=== PATIENT | female | born 1965 | race African-American/Black ===

== ENCOUNTER 2018-07-15 13:54 | Emergency (ER) | payer MEDICAID, OTHER ==
[~2018-07-15] VITALS: Ht 170.2 cm; Wt 128.0 kg
[~2018-07-15 13:54] MED LIST: METO1TAB39 MT
[2018-07-15] MEDS ORDERED: SODIUM CHLORIDE 0.9% 1,000 ML IV ONE (14:36)
[2018-07-15] MEDS ORDERED: ATENOLOL 25MG TABLET PO ONE (14:45)
[2018-07-15 14:54] LABS: BASOPHILS % 0.4 % (0.0-2.0); EOSINOPHILS % 0.9 % (0.0-5.0); HEMATOCRIT. 41.2 % (36.0-48.0); HEMOGLOBIN. 13.6 g/dL (12.0-16.0); LYMPHOCYTES % 49.7 % (20.0-50.0); MEAN CORPUSCULAR HEMOGLOBIN 27.4 pg (28.0-32.0); MEAN CORPUSCULAR VOLUME 83.2 fL (81.0-99.0); MEAN PLATELET VOLUME 9.5 fl (7.4-10.4); MONOCYTES % 8.4 % (2.0-8.0); NEUTROPHILS % 40.6 % (40.0-76.0); PLATELET 172 x1000/uL (130-400); RED BLOOD CELL COUNT 4.96 mill/uL (4.2-5.4); RED CELL DISTRIBUTION WIDTH 14.8 % (11.6-14.6)
[2018-07-15 14:58] LABS: CHLORIDE 105 mEq/L (98-107)
[2018-07-15 17:18] VITALS: BP 158/76
== END 2018-07-15 17:20 | disposition home or self-care (01) ==
LOC: ER 13:54
DX: I16.0 Hypertensive urgency (principal); I10 Essential (primary) hypertension; R51 Headache; Z88.1 Allergy status to other antibiotic agents; Z88.8 Allergy status to other drugs, medicaments and biological substances
CPT/HCPCS: 36415; 70450; 80053; 85025; 93005; 99284; J7030

== ENCOUNTER 2018-09-07 15:02 | Emergency (ER) | payer OTHER ==
[~2018-09-07] VITALS: Ht 170.2 cm; Wt 128.0 kg
[2018-09-07 15:05] VITALS: BP 120/80
== END 2018-09-07 20:00 | disposition home or self-care (01) ==
LOC: ER 19:39
DX: R00.2 Palpitations (principal); I10 Essential (primary) hypertension; Z98.890 Other specified postprocedural states; Z88.1 Allergy status to other antibiotic agents; Z88.8 Allergy status to other drugs, medicaments and biological substances
CPT/HCPCS: 36415; 84484; 93005; 99284

== ENCOUNTER 2022-07-06 11:26 | Inpatient (IN) | payer OTHER ==
[~2022-07-06] VITALS: Ht 170.2 cm; Wt 154.2 kg
[~2022-07-06 11:26] MED LIST changes: +AMLO5TAB88 PO; +ASPI-1406 MT; +ATEN-42 PO; +ATOR40TA70 MT; +LORA-249 MT; +LOSA50TA3 PO; -METO1TAB39 MT
[2022-07-06] MEDS ORDERED: IOHEXOL-350 100 ML BOTTLE ONE (11:58)
[2022-07-06 12:25] LABS: BASOPHILS % 0.2 % (0.0-2.0); HEMATOCRIT. 39.6 % (36.0-48.0); HEMOGLOBIN. 13.1 g/dL (12.0-16.0); LYMPHOCYTES % 56.7 % (20.0-50.0); MEAN CORPUSCULAR HEMOGLOBIN 27.7 pg (28.0-32.0); MEAN PLATELET VOLUME 9.4 fl (7.4-10.4); MONOCYTES % 12.6 % (2.0-8.0); NEUTROPHILS % 29.5 % (40.0-76.0); PLATELET 163 x1000/uL (130-400); RED BLOOD CELL COUNT 4.72 mill/uL (4.2-5.4); RED CELL DISTRIBUTION WIDTH 14.6 % (11.6-14.6)
[2022-07-06 12:30] LABS: CHLORIDE 104 mEq/L (98-107)
[2022-07-06] MEDS ORDERED: METOCLOPRAMIDE HCL 10MG/2ML VIAL IV ONE (12:30)
[2022-07-06] MEDS ORDERED: KETOROLAC 30MG/ML VIAL IV ONE (12:30)
[2022-07-06 12:39] LABS: ETHANOL BLOOD < 10 mg/dL
[2022-07-06 13:00] LABS: CLARITY URINE CLEAR (CLEAR); COLOR URINE YELLOW (YELLOW); KETONES URINE NEGATIVE (NEGATIVE); LEUKOCYTE ESTERASE URINE NEGATIVE (NEGATIVE); NITRITE URINE NEGATIVE (NEGATIVE); OCCULT BLOOD URINE NEGATIVE (NEGATIVE); PROTEIN URINE NEGATIVE (NEGATIVE); UROBILINOGEN URINE 0.2 E.U./dL (0.2-1.0)
[2022-07-06 13:37] LABS: *AMPHETAMINES SCREEN URINE NEGATIVE (NEGATIVE); *BARBITURATES SCREEN URINE NEGATIVE (NEGATIVE); *BENZODIAZEPINES SCREEN URINE NEGATIVE (NEGATIVE); *COCAINE SCREEN URINE NEGATIVE (NEGATIVE); CANNABINOID URINE SCREEN NEGATIVE (NEGATIVE); METHADONE URINE SCREEN NEGATIVE (NEGATIVE); OPIATES URINE SCREEN NEGATIVE (NEGATIVE); PHENCYCLIDINE URINE SCREEN NEGATIVE (NEGATIVE)
[2022-07-06] MEDS ORDERED: LORAZEPAM 2MG/ML CPJ IV NR (22:00)
[2022-07-06] MEDS ORDERED: VALPROATE SODIUM 1,000 MG in SODIUM CHLORIDE 0.9% 100 ML IV NR (23:00)
[2022-07-06] MEDS ORDERED: METHYLPREDNISOLONE SOD SUCC 1,000 MG in DEXT 5% WATER 100 ML IV SCH (23:00)
[2022-07-07 09:30] VITALS: BP 177/92
[2022-07-07] MEDS ORDERED: CLONIDINE 0.1MG TABLET PO PRN (11:45)
[2022-07-07 12:00] VITALS: BP 133/63
[2022-07-07] MEDS: ATENOLOL 25MG TABLET PO SCH ×2 (12:30→17:00)
[2022-07-07] MEDS: LOSARTAN POTASSIUM 50 MG TABLET PO SCH (12:30)
[2022-07-07] MEDS: AMLODIPINE 5MG TABLET PO SCH ×2 (12:30→17:21)
[2022-07-07] MEDS: ASPIRIN 81MG EC TABLET PO SCH (13:35)
[2022-07-07 16:00] VITALS: BP 141/67
[2022-07-07] MEDS ORDERED: ATEN-42 MT (17:11)
[2022-07-07] MEDS ORDERED: NALOXONE HCL 0.4MG/ML VIAL IV PRN (17:15)
[2022-07-07] MEDS ORDERED: HYDROCODONE/ACETAMINOPHEN 5/325MG TABLET PO PRN (17:15)
[2022-07-07] MEDS: POLYETHYLENE GLYCOL 3350 (17GM) 1 DOSE PACK PO SCH (17:27)
[2022-07-07 20:00] VITALS: BP 147/79
[2022-07-07] MEDS: METHYLPREDNISOLONE SOD SUCC 1,000 MG in DEXT 5% WATER 100 ML IV SCH (21:35)
[2022-07-07] MEDS ORDERED: LORAZEPAM 2MG/ML CPJ IV PRN (23:15)
[2022-07-08] VITALS: BP 144/70
[2022-07-08 04:00] VITALS: BP 145/79
[2022-07-08 08:00] VITALS: BP 177/89
[2022-07-08] MEDS: ASPIRIN 81MG EC TABLET PO SCH (08:10)
[2022-07-08] MEDS: AMLODIPINE 5MG TABLET PO SCH ×2 (08:10→17:00)
[2022-07-08] MEDS: POLYETHYLENE GLYCOL 3350 (17GM) 1 DOSE PACK PO SCH ×3 (08:10→18:11)
[2022-07-08] MEDS: ATORVASTATIN CALCIUM 40MG TABLET PO SCH (08:10)
[2022-07-08] MEDS: LOSARTAN POTASSIUM 50 MG TABLET PO SCH (08:10)
[2022-07-08] MEDS: ATENOLOL 25MG TABLET PO SCH (08:13)
[2022-07-08 09:00] LABS: BASOPHILS % 0.2 % (0.0-2.0); HEMATOCRIT. 39.3 % (36.0-48.0); LYMPHOCYTES % 15.3 % (20.0-50.0); MEAN CORPUSCULAR HEMOGLOBIN 27.5 pg (28.0-32.0); MEAN CORPUSCULAR VOLUME 83.3 fL (81.0-99.0); MONOCYTES % 2.9 % (2.0-8.0); NEUTROPHILS % 81.6 % (40.0-76.0); PLATELET 168 x1000/uL (130-400); RED BLOOD CELL COUNT 4.72 mill/uL (4.2-5.4); RED CELL DISTRIBUTION WIDTH 14.7 % (11.6-14.6)
[2022-07-08 09:31] LABS: CHLORIDE 101 mEq/L (98-107)
[2022-07-08 09:47] LABS: T4 FREE 1.18 ng/dL (0.76-1.46)
[2022-07-08 12:00] VITALS: BP 144/61
[2022-07-08] MEDS ORDERED: AMLO5TAB88 PO (15:38)
[2022-07-08] MEDS ORDERED: LIP40 PO (15:38)
[2022-07-08] MEDS ORDERED: ATEN-42 PO (15:38)
[2022-07-08] MEDS ORDERED: LOSA50TA3 PO (15:38)
[2022-07-08] MEDS ORDERED: METH-371 PO (15:38)
[2022-07-08] MEDS ORDERED: ASPI-1406 PO (15:38)
[2022-07-08] MEDS ORDERED: LORA-249 MT ×2 (15:39→17:22)
[2022-07-08 16:00] VITALS: BP 156/79
[2022-07-08] MEDS ORDERED: LOSA50TA41 MT (17:22)
[2022-07-08] MEDS ORDERED: ASPI-1497 MT (17:22)
[2022-07-08] MEDS ORDERED: AMLO5TAB4 PO (17:22)
[2022-07-08] MEDS ORDERED: LIP40 MT (17:22)
[2022-07-08] MEDS ORDERED: ATEN-42 MT (17:22)
[2022-07-08] MEDS: METHIMAZOLE 5MG TABLET PO SCH ×2 (18:03→18:11)
[2022-07-08 20:00] VITALS: BP 137/62
[2022-07-08] MEDS: METHYLPREDNISOLONE SOD SUCC 1,000 MG in DEXT 5% WATER 100 ML IV SCH (20:52)
[2022-07-09] VITALS: BP 164/88
[2022-07-09 04:00] VITALS: BP 134/88
[2022-07-09 08:00] VITALS: BP 155/81
[2022-07-09] MEDS: ATENOLOL 25MG TABLET PO SCH (09:07)
[2022-07-09] MEDS: ATORVASTATIN CALCIUM 40MG TABLET PO SCH (09:08)
[2022-07-09] MEDS: AMLODIPINE 5MG TABLET PO SCH (09:08)
[2022-07-09] MEDS: LOSARTAN POTASSIUM 50 MG TABLET PO SCH (09:10)
[2022-07-09] MEDS: METHIMAZOLE 5MG TABLET PO SCH (09:10)
[2022-07-09] MEDS: ASPIRIN 81MG EC TABLET PO SCH (09:10)
[2022-07-09] MEDS: POLYETHYLENE GLYCOL 3350 (17GM) 1 DOSE PACK PO SCH (09:10)
[2022-07-09 12:04] VITALS: BP 148/82
== END 2022-07-09 12:30 | disposition home or self-care (01) | DRG 45 ==
LOC: ER 11:47 → EDBEDREQTM 11:54 → EDBEDREQSVC 11:54 → EDBEDREQ 11:54 → MICUSO 13:21 → EDBEDREQTM 13:26 → EDBEDREQ 13:26 → 7EST 07-07 08:55
PROVIDERS: ADMIT Internal Medicine; ATTEND Internal Medicine
DX: I63.9 Cerebral infarction, unspecified (principal); I67.4 Hypertensive encephalopathy; Z68.43 Body mass index [BMI] 50.0-59.9, adult; E66.01 Morbid (severe) obesity due to excess calories; I10 Essential (primary) hypertension; E78.5 Hyperlipidemia, unspecified; Z88.8 Allergy status to other drugs, medicaments and biological substances; Z79.82 Long term (current) use of aspirin; Z79.899 Other long term (current) drug therapy; Z82.49 Family history of ischemic heart disease and other diseases of the circulatory system
CPT/HCPCS: 36415; 70496; 70498; 70551; 71045; 80048; 80053; 80305; 80320; 81003; 82962; 84439; 84443; 84481; 85025; 93005; 93306; 99291; J1885; J2060; J2765; J2930; J3490; J7050; J7060; Q9967; G0480

== ENCOUNTER 2023-04-28 20:46 | Emergency (ER) | payer MEDICAID, OTHER ==
[~2023-04-28] VITALS: Ht 172.7 cm; Wt 127.0 kg
[~2023-04-28 20:46] MED LIST changes: +AMLO5TAB4 PO; -ASPI-1406 MT; +ASPI-1406 PO; +ASPI-1497 MT; +ATEN-42 MT; -ATOR40TA70 MT; +LIP40 MT; +LIP40 PO; +LOSA-413 PO; -LOSA50TA3 PO; +LOSA50TA41 MT; +METH-371 PO
[2023-04-28 20:56] VITALS: O2SAT 99
[2023-04-28 21:39] LABS: BASOPHILS % 0.4 % (0.0-2.0); EOSINOPHILS % 1.3 % (0.0-5.0); HEMATOCRIT. 38.4 % (36.0-48.0); HEMOGLOBIN. 12.3 g/dL (12.0-16.0); LYMPHOCYTES % 52.3 % (20.0-50.0); MEAN CORPUSCULAR HEMOGLOBIN 26.8 pg (28.0-32.0); MEAN CORPUSCULAR HGB CONC 32.2 g/dL (31.0-37.0); MEAN CORPUSCULAR VOLUME 83.2 fL (81.0-99.0); MEAN PLATELET VOLUME 9.9 fl (7.4-10.4); MONOCYTES % 11.4 % (2.0-8.0); NEUTROPHILS % 34.6 % (40.0-76.0); PLATELET 173 x1000/uL (130-400); RED BLOOD CELL COUNT 4.61 mill/uL (4.2-5.4); RED CELL DISTRIBUTION WIDTH 14.7 % (11.6-14.6); WHITE BLOOD COUNT 5.4 x1000/uL (4.5-11.0)
[2023-04-28 21:44] LABS: PROTHROMBIN TIME 10.6 sec (9.6-11.0)
[2023-04-28 21:57] LABS: CHLORIDE 105 mEq/L (98-107); INDEX HEMOLYSI 1 (1-3); INDEX ICTERIC 1 (1-4); INDEX LIPEMIC 1 (1-3); POTASSIUM 3.7 mEq/L (3.5-5.1); SODIUM 140 mEq/L (136-145)
[2023-04-28 22:07] LABS: BILIRUBIN TOTAL 0.3 mg/dL (0.1-1.0); NT PRO B-TYPE NATRIURETIC PEP 69 pg/mL (5-125); PROTEIN TOTAL 8.2 g/dL (6.0-8.3); TROPONIN I HIGH SENSITIVITY 5 ng/L (<54)
[2023-04-28 22:13] LABS: ALANINE AMINOTRANSFERASE 18 IU/L (13-61); ALBUMIN 3.3 g/dL (3.4-5.0); ASPARTATE AMINOTRANSFERASE 16 IU/L (15-37); CALCIUM 8.8 mg/dL (8.5-10.1); CARBON DIOXIDE 31 mEq/L (21-32); GLUCOSE 97 mg/dL (70-105); UREA NITROGEN BLOOD 14 mg/dL (7-21)
[2023-04-28 23:47] LABS: TROPONIN I HIGH SENSITIVITY 6 ng/L (<54)
[2023-04-29] MEDS ORDERED: ASPIRIN 325MG EC TABLET PO ONE (00:30)
[2023-04-29] MEDS ORDERED: ASPIRIN 325MG EC TABLET PO NR (02:45)
[2023-04-29 04:17] VITALS: BP 133/60; PULSE 80; RESP 18; TEMP 98.1
== END 2023-04-29 04:46 | disposition short-term general hospital (02) ==
LOC: ER 20:46
DX: R07.89 Other chest pain (principal); M25.562 Pain in left knee; I10 Essential (primary) hypertension; Z79.899 Other long term (current) drug therapy
CPT/HCPCS: 80053; 83880; 85025; 85610; 84484; 36415; 71045; 73560; 93005; 99291; Z7610

== ENCOUNTER 2024-10-02 14:20 | Emergency (ER) | payer OTHER ==
[~2024-10-02] VITALS: Ht 165.1 cm; Wt 127.0 kg
[~2024-10-02 14:20] MED LIST changes: -AMLO5TAB4 PO; +AMLO5TAB5 PO
[2024-10-02 14:23] VITALS: O2SAT 98
[2024-10-02] MEDS: ACETAMINOPHEN 325MG TABLET PO ONE (15:32)
[2024-10-02] MEDS ORDERED: METH-773 MT (16:18)
[2024-10-02 16:38] VITALS: BP 136/62; PULSE 80; RESP 18; TEMP 37.2; O2SAT 99
== END 2024-10-02 17:07 | disposition home or self-care (01) ==
LOC: ER 14:20
DX: R51.9 Headache, unspecified (principal); I10 Essential (primary) hypertension; Z88.1 Allergy status to other antibiotic agents; Z88.8 Allergy status to other drugs, medicaments and biological substances; Z79.82 Long term (current) use of aspirin; Z79.899 Other long term (current) drug therapy; Z86.73 Personal history of transient ischemic attack (TIA), and cerebral infarction without residual deficits
CPT/HCPCS: 73030; 99284